=== PATIENT | male | born 1940 | race Caucasian/White ===

== ENCOUNTER 2017-12-24 10:08 | Emergency (ER) | payer MEDICARE, OTHER ==
[2017-12-24 10:45] VITALS: TEMP 97.5
--- NOTE | 2017-12-24 10:49 | RAD ---
EXAM DESCRIPTION: Chest,1 View CLINICAL HISTORY: syncopal COMPARISON: None available Findings: Post CABG changes with median sternotomy wires and ostial markers. Dual-lead left chest cardiac pacemaker with one lead projecting over the right atrium and one lead projecting over the right ventricle. Cardiac silhouette and pulmonary vascularity are within normal limits. Lungs are clear without focal consolidative infiltrates. No pleural effusion. No pneumothorax. No acute osseous abnormality. IMPRESSION: 1. No radiographic evidence for acute cardiopulmonary process. 2. Other findings as above. Electronically signed by: Tj Peng MD 12/24/2017 10:47 AM CDT
--- NOTE | 2017-12-24 11:26 | ED.PDOC ---
History of Present Illness - General Chief Complaint: Syncope/Near Syncope Stated Complaint: n/v,syncopal episode Time Seen by Provider: 12/24/17 10:56 Source: family Exam Limitations: no limitations - History of Present Illness Initial Comments: Andres Peterson 77 y/o male brought to ER after he had passed out seated on the chair eating breakfast for about 5 minutes and also threw up the food he had eaten.Stated had same episode in the past in August 2017 while attending [employer] passed out then was treated for dehydration but had seen his fashion consultant had secured entrance monitor and cardiac work up eventually was placed on pacemaker /defib and placed 2 cardiac stents.Had 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 Timing/Duration: 1-3 hours Severity: moderate Improving Factors: nothing Worsening Factors: nothing Associated Symptoms: nausea/vomiting Allergies/Adverse Reactions: Allergies NO KNOWN ALLERGY Allergy (Verified 12/24/17 10:18) Home Medications: Ambulatory Orders Aspirin [Aspirin Adult Low Dose] 81 mg PO DAILY 12/24/17 Atorvastatin Calcium [Lipitor] 80 mg PO BEDTIME 12/24/17 Clopidogrel Bisulfate [Plavix] 75 mg PO QD 12/24/17 Diazepam [Valium] 2 mg PO TID 12/24/17 Lipoflavonoid 2 each PO DAILY 12/24/17 Lisinopril & Hydrochlorothiazi [Lisinopril/Hctz 10-12.5 mg] 1 tab PO DAILY 12/24 Metoprolol Tartrate 25 mg PO DAILY 12/24/17 Multiple Vitamin [Multivitamins] 1 cap PO DAILY 12/24/17 Omeprazole 40 mg PO DAILY 12/24/17 Vitamin D PO DAILY 12/24/17 Review of Systems - Review of Systems Constitutional: States: no symptoms reported EENTM: States: no symptoms reported Respiratory: States: no symptoms reported Cardiology: States: no symptoms reported Gastrointestinal/Abdominal: States: no symptoms reported, abdominal pain Musculoskeletal: States: no symptoms reported Skin: States: no symptoms reported Neurological: States: other - syncopal episode Past Medical History (General) - Patient Medical History Hx Stroke: Yes Hx Cardiac Disorders: Yes - IL/s/p cabg Hx Congestive Heart Failure: No Hx Hypertension: Yes Hx Diabetes: No Surgical History: coronary bypass surgery, pacemaker, other - cataract ,hernia, back - Vaccination History Hx Influenza Vaccination: Yes Hx Pneumococcal Vaccination: Yes - Social History Hx Tobacco Use: Yes Hx Alcohol Use: No Hx Substance Use: No Hx Substance Use Treatment: No Hx Depression: No Hx Physical Abuse: No Hx Emotional Abuse: No - Activities of Daily Living Patient Lives Alone: No Grooming Ability: Independent Eating (Feeding) Ability: Independent Toileting Ability: Independent Family Medical History - Family History Father Family History: Unknown Living Status: Unknown Hx Family Congestive Heart Failure: Yes - mom Hx Cardiac Disease: Yes - brother/dad Hx Family Diabetes: Yes - mom Physical Exam - Physical Exam General Appearance: Alert, Comfortable, No apparent distress Eye Exam: bilateral normal Ears, Nose, Throat: hearing grossly normal, normal ENT inspection Neck: non-tender, full range of motion, supple, normal inspection Respiratory: chest non-tender, lungs clear, normal breath sounds, no respiratory distress Cardiovascular/Chest: normal peripheral pulses, regular rate, rhythm, no murmur Peripheral Pulses: radial,right: 2+, radial,left: 2+ Gastrointestinal/Abdominal: normal bowel sounds, non tender, soft, no organomegaly Back Exam: normal inspection, no CVA tenderness, no vertebral tenderness Extremity: no pedal edema, no calf tenderness Neurologic: no motor/sensory deficits, alert, oriented x 3, other - speech fluent;no pronator drift Skin Exam: normal color, warm/dry Progress - Progress Progress: 12/24/17 11:30 Vital Signs - 8 hr 12/24/17 12/24/17 10:13 11:17 Temperature 97.5 F L Pulse Rate [ 64 62 Left Brachial] Respiratory 16 16 Rate Blood Pressure 135/64 102/63 [Left Arm] O2 Sat by Pulse 90 L 95 Oximetry - Results/Orders Results/Orders: 12/24/17 10:30 EKG STAT Laboratory Results - last 24 hr 12/24/17 12/24/17 12/24/17 09:55 09:55 11:32 WBC 10.1 RBC 5.68 Hgb 17.1 Hct 51.5 MCV 90.6 MCH 30.1 MCHC 33.2 RDW 14.0 Plt Count 190 MPV 8.7 Absolute Neuts (auto) 5.60 Absolute Lymphs (auto) 3.40 Absolute Monos (auto) 0.90 H Absolute Eos (auto) 0.20 Absolute Basos (auto) 0.10 Neutrophils % 55.0 Lymphocytes % 33.5 Monocytes % 9.3 H Eosinophils % 1.6 Basophils % 0.6 PT 9.6 INR 0.96 PTT (SP) 22.3 D-Dimer, Quantitative 0.71 H* Sodium 139 Potassium 3.4 L Chloride 99 L Carbon Dioxide 28 Anion Gap 15.4 BUN 24 H Creatinine 1.23 BUN/Creatinine Ratio 19.5 Random Glucose 158 H Serum Osmolality 284.9 Calcium 8.8 Magnesium 2.1 Creatine Kinase 49 CK-MB (CK-2) 2.1 CK-MB (CK-2) % Not Reportable Troponin I < 0.02 B-Natriuretic Peptide 146.0 H - EKG/XRAY/CT EKG: Sinus Comments: HR-60 pacemaker XRAY: chest - no acutecardiopulmanary disease CT Ordered: Yes - chest -airspace disease left lobe and right mid/lower lobe CT Interpretation Call Back: Yes - head -no infarct or hemorrhage Departure - Departure Clinical Impression: Syncopal episodes Qualifiers: Syncope type: unspecified Qualified Code(s): R55 - Syncope and collapse Aspiration pneumonia Qualifiers: Aspiration pneumonia type: unspecified Laterality: bilateral Lung location: lower lobe of lung Qualified Code(s): J69.0 - Pneumonitis due to inhalation of food and vomit Time of Disposition: 17:20 Disposition: Transfer to Hospital Condition: Fair Departure Forms: Patient Portal Self Enrollment Home Medications: Ambulatory Orders Aspirin [Aspirin Adult Low Dose] 81 mg PO DAILY 12/24/17 Atorvastatin Calcium [Lipitor] 80 mg PO BEDTIME 12/24/17 Clopidogrel Bisulfate [Plavix] 75 mg PO QD 12/24/17 Diazepam [Valium] 2 mg PO TID 12/24/17 Lipoflavonoid 2 each PO DAILY 12/24/17 Lisinopril & Hydrochlorothiazi [Lisinopril/Hctz 10-12.5 mg] 1 tab PO DAILY 12/24 Metoprolol Tartrate 25 mg PO DAILY 12/24/17 Multiple Vitamin [Multivitamins] 1 cap PO DAILY 12/24/17 Omeprazole 40 mg PO DAILY 12/24/17 Vitamin D PO DAILY 12/24/17 Transfer to Outside Facility - Transfer Information Accepting Provider:: Dr. Cabral Accepting Facility: [facility] Reason for Transfer: required specialist not available - fashion consultant
--- NOTE | 2017-12-24 12:13 | CT ---
EXAM DESCRIPTION: Head CLINICAL HISTORY: syncope COMPARISON: None available TECHNIQUE: Noncontrast head CT was performed with routine protocol. FINDINGS: Normal jordan-white matter differentiation. Ventricles and sulci are normal for age. No high density hemorrhage, focal edema or shift of the midline. No sulcal effacement. Normal orbital contents. Basilar cisterns appear clear. Intact calvarium with no fracture or lytic lesion. Normal aeration of tympanic cavities and mastoid air cells. No fluid levels in the paranasal sinuses. Skull base appears intact. Symmetrical internal auditory canals. Coronal and sagittal reformatted images confirm the findings. IMPRESSION: No acute intracranial pathologic process. This exam was performed according to our departmental dose-optimization program, which includes automated exposure control, adjustment of the mA and/or kV according to patient size and/or use of iterative reconstruction technique. Total DLP equals 967.47 mGycm. Electronically signed by: Kosta Mcgovern MD 12/24/2017 12:12 PM CDT
[2017-12-24] MEDS ORDERED: SODIUM CHLORIDE 0.9% 1000ML 1,000 ML IVS ONE (12:41)
--- NOTE | 2017-12-24 15:04 | CT ---
EXAM DESCRIPTION: CTA Chest CLINICAL HISTORY: elevated d dimer;syncopal episode COMPARISON: None. TECHNIQUE: Postcontrast CT images of the chest are obtained using pulmonary embolism imaging protocol. Three-D MIP reconstructed images of the arterial vasculature are obtained. Coronal and sagittal reconstructed images of the also provided. This exam was performed according to our departmental dose-optimization program, which includes automated exposure control, adjustment of the mA and/or kV according to patient size and/or use of iterative reconstruction technique . FINDINGS: The heart is enlarged. Post-CABG changes are seen. Left subclavian dual-lead transvenous cardiac pacemaker leads are seen in place. There is poor opacification of the thoracic aorta limiting evaluation. Mild aneurysmal dilatation of the ascending thoracic aorta measures 4.9 cm. No definite filling defects or emboli are seen in the pulmonary arteries. The lungs are normally aerated. Patchy areas of groundglass and alveolar increased density seen in the left lower lobe with mild interstitial thickening. Similar less prominent areas are seen in the inferior right middle lobe and right lower lobe. Small calcified pulmonary nodules in the right chest suggest old granulomatous disease. Images are degraded by patient breathing motion artifact. Osseous structures show no aggressive bony lesions. Multilevel hypertrophic bridging marginal endplate osteophytes of the thoracic spine are seen suggesting diffuse idiopathic skeletal hyperostosis. Visualized portion of the upper abdomen shows several fluid attenuation parapelvic cysts in both kidneys with nonobstructing left nephrolithiasis. IMPRESSION: No radiographic evidence of pulmonary embolism. Airspace disease primarily in the left lower lobe, but also seen in the right middle and lower lobe could represent developing pneumonia or pneumonitis. Transvenous cardiac pacemaker seen in place. Post-CABG changes are noted. Mild aneurysmal dilatation of the ascending thoracic aorta. Consider follow-up imaging in one year. Electronically signed by: Jaquan Conway MD 12/24/2017 3:03 PM CDT
[2017-12-24 17:31] VITALS: BP 148/89; O2SAT 97
== END 2017-12-24 17:31 | disposition short-term general hospital (02) ==
LOC: ER 10:08
DX: J69.0 Pneumonitis due to inhalation of food and vomit (principal); R55 Syncope and collapse; I25.2 Old myocardial infarction; I10 Essential (primary) hypertension; Z95.0 Presence of cardiac pacemaker; Z86.73 Personal history of transient ischemic attack (TIA), and cerebral infarction without residual deficits; Z79.82 Long term (current) use of aspirin; Z79.899 Other long term (current) drug therapy; Z95.1 Presence of aortocoronary bypass graft; Z87.891 Personal history of nicotine dependence
CPT/HCPCS: 36415; 70450; 71045; 71275; 80048; 82550; 82553; 83880; 84484; 85025; 85379; 85610; 85730; 93005; J7030